=== PATIENT | male | born 1970 | race Caucasian/White ===

== ENCOUNTER 2020-07-27 09:27 | Outpatient (CLI) | payer OTHER, SELFPAY ==
--- NOTE | 2020-07-27 09:36 | MR_ITS ---
WS: [id number] MRI LUMBAR SPINE WITH CONTRAST TECHNIQUE: Sagittal T1, T2 and STIR imaging. Axial T1 and T2 imaging. Post gadolinium imaging was obt ained. CLINICAL INFORMATION: Z98.890 - Other specified postprocedural states COMPARISON: MRI 4 019 FINDINGS: Again seen is the expansile oval-shaped expansile T2 hyperintense lesion involving the left iliac win g not significantly changed from previous measuring 4.8 x 3.1 cm. This is only well seen on the group tester imaging. Slight retrolisthesis L4 on L5 unchanged L1-L2: Normal. L2-L3: Minimal anterolisthesis. Mild annular bulging with slight effacement of the ventral thecal sac . Mild narrowing of the right subarticular recess. Moderate facet arthropathy. Spinal canal and manuel en are patent. Tiny left foraminal protrusion slightly encroaches on the exiting left L2 nerve root u nchanged. L3-L4: Mild annular bulging with slight effacement of the ventral thecal sac. Moderate central canal stenosis with impingement subarticular recess bilaterally. Moderate facet arthropathy with ligamentum flavum hypertrophy. Stenosis is unchanged from previous. Mild right foraminal narrowing. L4-L5: Slight retrolisthesis L4 on L5. Mild annular bulging with slight narrowing of the subarticular recess bilaterally. Postoperative changes left hemilaminectomy and partial discectomy. No recurrent disc extrusion. Spinal canal and foramen are patent. Moderate facet arthropathy. L5-S1: Mild annular bulging with a tiny central protrusion. Slight effacement of ventral thecal sac. Slight contact of the S1 nerve roots bilaterally. Mild to moderate facet arthropathy. Foramen are pat ent. Visualized pelvic bony structures: Normal. Paravertebral soft tissues: Normal. MR/MR lumbar spine wo/w con [id number] IMPRESSION: 1. Interval postoperative changes left laminectomy and partial discectomy L4-5 . No recurrent disc extrusion. Spinal canal and foramen are patent at this leve l. 2. No other significant changes from previous. 3. Moderate central canal stenosis L3-4 is unchanged. 4. Tiny shallow central disc protrusion L5-S1 with slight contact of the S1 ne rve roots is unchanged. 5. Partially visualized expansile T2 hyperintense left iliac lesion measuring 5.0 x 3.0 cm seen on the group tester imaging is stable.
== END 2020-07-27 09:28 | disposition home or self-care (01) ==
LOC: RADSHAW 09:31
PROVIDERS: PCP Registered Nurse; Visit Provider Registered Nurse
DX: Z98.890 Other specified postprocedural states (principal); R20.0 Anesthesia of skin; M79.604 Pain in right leg; M79.605 Pain in left leg; M51.27 Other intervertebral disc displacement, lumbosacral region
CPT/HCPCS: 72158; A9577

== ENCOUNTER → 2023-04-28 09:04 | Outpatient (BNVA) | payer OTHER, SELFPAY | PROVIDERS: PCP Registered Nurse; Visit Provider Registered Nurse | DX: E55.9 Vitamin D deficiency, unspecified (principal); Z13.6 Encounter for screening for cardiovascular disorders; E78.5 Hyperlipidemia, unspecified; Z12.5 Encounter for screening for malignant neoplasm of prostate | CPT/HCPCS: 80053; 80061; 82306; 85025; G0103 ==

== ENCOUNTER 2023-06-07 07:55 | Day surgery (SDC) | payer OTHER, SELFPAY ==
[2023-06-07 08:10] VITALS: BP 88/61; PULSE 88; RESP 16; TEMP 36.2; O2SAT 99; BMI 23.1
[2023-06-07] MEDS: sodium chloride 0.9% 1,000 ML 30 ML IV (08:18)
--- NOTE | 2023-06-07 08:43 | ANES.PREANE2 ---
Pre-Anesthetic Assessment Height/Weight: Height 1.98 m Weight 90.718 kg Temp Pulse Resp BP Pulse Ox O2 Del Method 97.1 F L 88 16 88/61 99 Room Air 06/07/23 08:10 06/07/23 08:10 06/07/23 08:10 06/07/23 08:10 06/07/23 08:10 06/07/23 08:10 Preop Diagnosis: screening Operation Date: 06/07/23 09:00 Proposed Procedures p [id number] colon [id number] screen colon H risk Z8.0,z12.11(Not Applicable) - Leland Berry DO Familial anesthetic complications: PONV Was Beta Dave taken within 24 hours: N/A Was Clonidine taken within 24 hours: N/A Last intake: Intake Last Liquid Date 06/06/23 Last Liquid Time 20:30 Last Solid Date 06/05/23 Last Solid Time 18:00 Social Alcohol (social) Exam alert, oriented x 3, clear to auscultation bilaterally and regular rate & rhythm Airway Submandibular: within normal limits Cervical ROM: within normal limits Mallampati: Class III Dentition: false Pulmonary None reported CV/HEM None reported None reported Hepatic None reported GI None reported Metabolic None reported Musc/skel Lower Back Pain Neuropsych None reported Anesthetic Plan ASA status: 1 Anesthesia: MAC Medications/Allergies Home Medications Medication Instructions Recorded Confirmed Last Taken Type vitamin D26-bdeqepx B1 oral liquid 1 ea PO DAILY 06/05/23 06/07/23 06/02/23 History Allergies Allergy/AdvReac Type Severity Reaction Status Date / Time latex Allergy ALGY-Hives Verified 06/07/23 08:08 Current Medications Generic Name Dose Route Start Last Admin Trade Name Miguel Angelq PRN Reason Stop Dose Admin Sodium Chloride 1,000 mls @ 30 mls/hr 06/07/23 08:00 06/07/23 08:18 Sodium Chloride 0.9% IV 06/08/23 07:59 30 mls/hr .Q24H ДМИТРИЙ Administration PFSH Anesthesia Surgical History History of back surgery Family History Brother Colon cancer Social History Smoking and tobacco/nicotine status: never used tobacco/nicotine Alcohol intake: never Substance/Drug Use: never Adopted: No Caregiver/support person: No Lives independently: No Household members: spouse Do you think of yourself as: Straight/Heterosexual Current gender identity: Male Data Anesthesia Cardiac Studies: No Data to Display
--- NOTE | 2023-06-07 08:53 | PM.HP ---
Providers/Chief Complaint Primary Care Provider: ROSS Pino Chief Complaint: Z12.11 History of Present Illness Igor Can is a 52 year old male Review of Systems General: Reports: 10 or more systems reviewed and unremarkable except in HPI and below Medications/Allergies Home Medications Medication Instructions Recorded Confirmed Last Taken Type vitamin J27-wolhxss B1 oral liquid 1 ea PO DAILY 06/05/23 06/07/23 06/02/23 History Allergies Allergy/AdvReac Type Severity Reaction Status Date / Time latex Allergy ALGY-Hives Verified 06/07/23 08:08 PFSH Acute PFSH: Surgical History History of back surgery Family History Brother Colon cancer Social History Smoking and tobacco/nicotine status: never used tobacco/nicotine Alcohol intake: never Substance/Drug Use: never Adopted: No Caregiver/support person: No Lives independently: No Household members: spouse Do you think of yourself as: Straight/Heterosexual Current gender identity: Male Vitals/I&O/Wt Last Vital Signs Temp 97.1 F L 06/07/23 08:10 Pulse 88 06/07/23 08:10 Resp 16 06/07/23 08:10 BP 88/61 06/07/23 08:10 Pulse Ox 99 06/07/23 08:10 O2 Del Method Room Air 06/07/23 08:10 Weight last 48 hrs Weight 200 lb A&P Assessment and plan (1) Family history of colon cancer: Plan Screening colonoscopy Attestations Medical Necessity Statement*: Home Coding Level of Care Code Acute Code for Chg Fwd Diagnoses Family history of colon cancer Z80.0
[2023-06-07 09:15] VITALS: BP 100/64; PULSE 80; RESP 14; TEMP 36.3; O2SAT 96
[2023-06-07 09:20] VITALS: BP 93/65; PULSE 84; RESP 16; O2SAT 98
[2023-06-07 09:30] VITALS: BP 121/76; PULSE 62; RESP 18; O2SAT 100
--- NOTE | 2023-06-07 09:55 | ANE.PACU2 ---
Inpatient post-anesthesia follow up: Airway intact: Yes Vital signs: Temperature 97.4 F Pulse Rate 62 Respiratory Rate 18 Blood Pressure 121/76 Pulse Oximetry 100 Oxygen Delivery Me thod Room Air Oxygen Flow Rate Fraction of Inspir ed Oxygen Hydration adequate: Yes Nausea and vomiting: No Pain level: 1 Mental status: Baseline
== END 2023-06-07 09:56 | disposition home or self-care (01) ==
PROVIDERS: PCP Registered Nurse; Visit Provider Surgery
PROC: 0DJD8ZZ Inspection of Lower Intestinal Tract, Via Natural or Artificial Opening Endoscopic (ICD-10-PCS; CPT 45378; principal; 2023-06-07 09:00)
DX: Z12.11 Encounter for screening for malignant neoplasm of colon (principal); Z80.0 Family history of malignant neoplasm of digestive organs
CPT/HCPCS: 45378; J2704; J3490; J7030

== ENCOUNTER 2023-08-15 16:52 | Outpatient (CLI) | payer OTHER, SELFPAY ==
--- NOTE | 2023-08-15 16:58 | XR_ITS ---
WS: [id number] XR ankle LT min 3V* [id number] REASON FOR EXAM: M25.572 - Pain in left ankle and joints of left foot FINDINGS: No fracture or focal bone lesion. Joint spaces of the left ankle are intact and well preserved. No soft tissue abnormality. XR/XR ankle LT min 3V* [id number] IMPRESSION: No significant abnormality.
== END 2023-08-15 16:53 | disposition home or self-care (01) ==
PROVIDERS: PCP Registered Nurse; Visit Provider Registered Nurse
DX: M25.572 Pain in left ankle and joints of left foot (principal)
CPT/HCPCS: 73610

== ENCOUNTER → 2023-12-04 08:04 | Outpatient (BNVA) | payer OTHER, SELFPAY | PROVIDERS: PCP Registered Nurse; Visit Provider Registered Nurse | DX: R19.8 Other specified symptoms and signs involving the digestive system and abdomen (principal) | CPT/HCPCS: 85651; 86003; 86008; 86141 ==

== ENCOUNTER → 2024-09-30 09:37 | Outpatient (BNVA) | payer OTHER, SELFPAY | PROVIDERS: PCP Registered Nurse; Visit Provider Registered Nurse | DX: R06.02 Shortness of breath (principal); R42 Dizziness and giddiness; I10 Essential (primary) hypertension; E78.5 Hyperlipidemia, unspecified; E53.8 Deficiency of other specified B group vitamins | CPT/HCPCS: 80053; 80061; 82306; 82607; 83036; 84402; 84403; 84443; 85025 ==

== ENCOUNTER 2024-11-05 06:57 | Outpatient (CLI) | payer OTHER, SELFPAY ==
--- NOTE | 2024-11-05 07:00 | USCV_ITS ---
CanIgor romano Age: 54 Gender: M : 1970 Exam Date: 11/05/2024 07:02 Ordering Phys: Lara Lua [employer] Technologist: SIMA Exam Location: [facility] – [place] Indication: SoB BP: 130 / 80 HR: 61 Rhythm: Sinus Technical Quality: Adequate MEASUREMENTS (Male / Female) Normal Values 2D ECHO LV Diastolic Diameter PLAX 4.4 cm 4.2 - 5.9 / 3.9 - 5.3 cm IVS Diastolic Thickness 0.8 cm 0.6 - 1.0 / 0.6 - 0.9 cm IVS Systolic Thickness 1.4 cm LVPW Diastolic Thickness 1.0 cm 0.6 - 1.0 / 0.6 - 0.9 cm LVPW Systolic Thickness 1.6 cm LVOT Diameter 2.1 cm LV Ejection Fraction 2D Teich 55.5 % LV Ejection Fraction MOD 4C 64.1 % LV Ejection Fraction MOD 2C 59.8 % LV Ejection Fraction 2C AL 60.2 % LA Diameter 3.1 cm RA Systolic Volume 4C AL 36.6 ml RA Systolic Volume 4C MOD 31.1 ml LA Sys Volume AL 38.7 cm cubed LA Sys Volume Index AL 17.9 cm cubed/m squared Aorta at Sinotubular Diameter 2.8 cm IVC Diameter 1.8 cm M-MODE LA Ao Ratio MM 1.2 AV Cusp Separation MM 1.8 cm DOPPLER AV Peak Velocity 99.0 cm/s LVOT Peak Velocity 82.0 cm/s AV Area Cont Eq vti 2.9 cm squared AV Area Cont Eq pk 2.9 cm squared MV Peak Velocity 80.0 cm/s MV Area PHT 2.8 cm squared Mitral E to A Ratio 1.2 TV Peak Velocity 171.5 cm/s TR Peak Velocity 239.0 cm/s TR Peak Gradient 22.8 mmHg TV Peak E Velocity 72.0 cm/s PV Peak Velocity 94.0 cm/s FINDINGS Left Ventricle Normal left ventricular size, systolic function and wall thickness, with no regional wall motion abnormalities. EF60%. Normal diastolic function. Right Ventricle Normal right ventricular size and systolic function. Normal right ventricular systolic pressure. Right Atrium Normal right atrial size. Left Atrium Normal left atrial size. Mitral Valve Mildly thickened mitral valve. No mitral valve stenosis. Mild mitral valve regurgitation. Aortic Valve No aortic valve stenosis. No aortic valve regurgitation. Tricuspid Valve Trace tricuspid valve regurgitation. Pulmonic Valve No pulmonary valve stenosis. No pulmonary valve regurgitation. Pericardium No pericardial effusion. Aorta Normal size aortic root and proximal ascending aorta. IVC Normal inferior vena cava. CONCLUSIONS 1. Normal left ventricular size, wall thickness, systolic function with EF 60%. Normal left ventricular diastolic function. 2. Normal right ventricular size and systolic function 3. Mild mitral valve regurgitation 4. Normal pulmonary artery systolic pressure. Nakul Deluca MD, FACC (Electronically Signed) Final Date: 06 November 2024 20:42 S
== END 2024-11-05 06:58 | disposition home or self-care (01) ==
LOC: RAD 06:58
PROVIDERS: PCP Registered Nurse; Visit Provider Registered Nurse
DX: R06.02 Shortness of breath (principal); R53.83 Other fatigue; R42 Dizziness and giddiness; I34.0 Nonrheumatic mitral (valve) insufficiency
CPT/HCPCS: 93306